=== PATIENT | female | born 1960 ===

== ENCOUNTER → 2024-11-27 | Day surgery (SDC) | payer OTHER ==
[~2024-11-27] MED LIST: BUPIVACAINE HCL/Mpf 0.5% 10ML VIAL ONE; CEFTRIAXONE SODIUM 2,000 MG VIAL ONE; COZAAR25 MG PO; CRESTOR40 MG; DIBUCAINE 30 GM TUBE ONE; HEMOSTATIC MATRIX WITH THROMBIN KIT TOP ONE; LIDOCAINE HCL 1%/EPINEPHRINE 20ML VIAL IJ ONE; METRONIDAZOLE/SODIUM CHLORIDE 500 MG/100 ML PIGGYBACK IV ONE; NEURONTIN300 MG; NEURONTIN800 MG PO; NEXIUM 24HR20 M1 PO; NOXIFOL-D32500 UNIT; PAXIL CR25 MG PO; PEPCID AC20 MG; POVIDONE-IODINE 118 ML BOTT TOP ONE; REPAGLINIDE1 MG PO; SINGULAIR10 MG PO; SYNTHROID75 MCG PO; TOPROL XL50 M1 PO; TRULICITY1.5 MG/0.5; XANAX0.25 MG PO
== END | disposition home or self-care (01) ==
LOC: ADM 11-20 07:00 → CIR.AMB 07:00
PROVIDERS: ATTEND Colon & Rectal Surgery
DX: K64.2 Third degree hemorrhoids (principal); K64.4 Residual hemorrhoidal skin tags

== ENCOUNTER 2025-02-26 07:10 | Day surgery (SDC) | payer OTHER ==
[~2025-02-26 07:10] MED LIST changes: -BUPIVACAINE HCL/Mpf 0.5% 10ML VIAL ONE; -CEFTRIAXONE SODIUM 2,000 MG VIAL ONE; -DIBUCAINE 30 GM TUBE ONE; -HEMOSTATIC MATRIX WITH THROMBIN KIT TOP ONE; -LIDOCAINE HCL 1%/EPINEPHRINE 20ML VIAL IJ ONE; -METRONIDAZOLE/SODIUM CHLORIDE 500 MG/100 ML PIGGYBACK IV ONE; -POVIDONE-IODINE 118 ML BOTT TOP ONE; +PROTONIX40 MG PO
[2025-02-26] MEDS ORDERED: METRONIDAZOLE/SODIUM CHLORIDE 500 MG/100 ML PIGGYBACK IV ONE (08:04)
[2025-02-26] MEDS ORDERED: CEFTRIAXONE SODIUM 2,000 MG VIAL ONE (08:04)
[2025-02-26] MEDS ORDERED: POVIDONE-IODINE 118 ML BOTT TOP ONE (09:07)
[2025-02-26] MEDS ORDERED: DIBUCAINE 30 GM TUBE ONE (09:07)
[2025-02-26] MEDS ORDERED: LIDOCAINE HCL 1%/EPINEPHRINE 20ML VIAL IJ ONE (09:07)
[2025-02-26] MEDS ORDERED: HEMOSTATIC MATRIX 1 KIT KIT TOP ONE (09:07)
[2025-02-26] MEDS ORDERED: BUPIVACAINE HCL/MPF 0.5% 30ML VIAL ONE (09:07)
[2025-02-26] MEDS ORDERED: MORPHINE SULFATE 4 MG/ML VIAL IV ONE (14:40)
== END 2025-02-26 15:15 | disposition home or self-care (01) ==
LOC: CIR.AMB 07:10
PROVIDERS: ATTEND Colon & Rectal Surgery
DX: K60.1 Chronic anal fissure (principal); K62.4 Stenosis of anus and rectum; K64.2 Third degree hemorrhoids